=== PATIENT | female | born 1965 | race Caucasian/White ===

== ENCOUNTER 2016-10-13 07:58 | Inpatient (IN) | payer BC ==
[~2016-10-13] VITALS: Ht 162.6 cm; Wt 104.3 kg
[~2016-10-13 07:58] MED LIST: SYNTHROID25 MCG PO
[2016-10-13 08:38] VITALS: BP 132/75
[2016-10-13 08:51] LABS: POINT-OF-CARE METER ID UU14174212
[2016-10-13 14:45] VITALS: BP 101/54
[2016-10-13 19:59] VITALS: BP 122/57
[2016-10-13 23:37] VITALS: BP 110/54
[2016-10-14 03:36] VITALS: BP 114/57
[2016-10-14 07:18] LABS: MCH 27.3 PG (29.0-34.0); MCHC 33.2 G/DL (30.0-36.0); MCV 82.2 FL (83-99); MEAN PLAT.VOLUME 11.6 uM^3 (9.5-12.4); PLATELET COUNT 156 K/uL (156-360); RBC DIS.WIDTH-CV 13.4 % (11.8-14.6); RBC DIS.WIDTH-SD 40.2 % (39-53); RED BLOOD COUNT 3.77 M/uL (3.80-5.20); WHITE BLOOD COUNT 8.4 K/uL (4.1-10.2)
[2016-10-14 07:32] LABS: ANION GAP 11 MEQ/L (2-14); CHLORIDE 107 MEQ/L (99-109); GFR ESTIMATE (CALCULATED) > 59 mL/min/; GLUCOSE 93 mg/dL (70-99); MAGNESIUM 1.8 mg/dl (1.3-2.7); POTASSIUM 3.9 MEQ/L (3.7-5.4); SAMPLE HEMOLYSIS CHECK 0; SAMPLE ICTERIC CHECK 0; SAMPLE LIPEMIA CHECK 0; SODIUM 141 MEQ/L (136-147); UREA NITROGEN (BUN) 10 mg/dL (9-23)
[2016-10-14] MEDS ORDERED: HYDROCODON-ACE1 EAC7 PO (08:22)
[2016-10-14] MEDS ORDERED: ASPIR 8181 M1 PO (08:23)
== END 2016-10-14 09:12 | disposition home or self-care (01) | DRG 620 ==
LOC: 2SOUTH 07:58 → 2EAST 14:35 → 2SOUTH 15:03 → 2EAST 10-14 09:12
PROVIDERS: Surgery
PROC: 0DB64Z3 Excision of Stomach, Percutaneous Endoscopic Approach, Vertical (ICD-10-PCS; principal; 2016-10-13)
DX: E66.01 Morbid (severe) obesity due to excess calories (principal); D68.51 Activated protein C resistance; J45.909 Unspecified asthma, uncomplicated; E03.9 Hypothyroidism, unspecified; M19.90 Unspecified osteoarthritis, unspecified site; Z68.39 Body mass index [BMI] 39.0-39.9, adult
CPT/HCPCS: 80048; 82948; 83735; 84100; 85027; C9113; J0330; J0690; J1100; J1170; J1644; J1650; J1815; J1885; J2250; J2270; J2405; J2710; J2765; J3010; J3480; J7120; S0020